=== PATIENT | female | born 1965 | race Caucasian/White ===

== ENCOUNTER 2022-07-18 10:58 | Day surgery (SDC) | payer OTHER ==
[~2022-07-18] VITALS: Ht 170.2 cm; Wt 95.3 kg
[2022-07-18] MEDS ORDERED: LIDOCAINE 2% 100 MG/5 ML UJET TP ONE (12:45)
[2022-07-18] MEDS ORDERED: fentaNYL citrate 0.05 MG/ML VIAL ONE (12:45)
[2022-07-18] MEDS ORDERED: fentaNYL citrate 0.05 MG/ML VIAL IVP ONE (13:15)
== END 2022-07-18 13:30 | disposition home or self-care (01) ==
LOC: MDS 10:58 → MMU 11:07 → MDS 13:30
PROVIDERS: ATTEND Internal Medicine Gastroenterology
DX: Z12.11 Encounter for screening for malignant neoplasm of colon (principal); E11.9 Type 2 diabetes mellitus without complications; Z79.84 Long term (current) use of oral hypoglycemic drugs; Z79.899 Other long term (current) drug therapy; Z90.49 Acquired absence of other specified parts of digestive tract
CPT/HCPCS: 45378; J3010